=== PATIENT | female | born 1985 | race American Indian/Alaskan Native ===

== ENCOUNTER 2019-03-08 21:19 | Emergency (ER) | payer SELFPAY | END 2019-03-08 21:51 | disposition left against medical advice (07) | LOC: ED 21:19 | DX: R09.81 Nasal congestion (principal); Z53.21 Procedure and treatment not carried out due to patient leaving prior to being seen by health care provider ==

== ENCOUNTER 2020-09-14 06:31 | Emergency (ER) | payer MEDICARE ==
[2020-09-14 07:04] VITALS: BP 153/86
[2020-09-14 08:12] LABS: Basophils % (Auto) 0.3 % (0.0-1.8); Eosinophils # (Auto) 0.1 K/mm3 (0.0-0.4); Eosinophils % (Auto) 0.6 % (0.0-4.3); Hematocrit 36.6 % (30.3-42.9); Hemoglobin 12.2 gm/dl (10.1-14.3); Lymphocytes # (Auto) 1.8 K/mm3 (1.2-5.4); Lymphocytes % (Auto) 19.2 % (13.4-35.0); Mean Corpuscular HGB Conc 33 % (30-34); Mean Corpuscular Volume 95 fl (79-97); Monocytes # (Auto) 0.5 K/mm3 (0.0-0.8); Platelet Count 244 K/mm3 (140-440); Red Blood Count 3.87 M/mm3 (3.65-5.03); Red Cell Distribution Width 14.2 % (13.2-15.2)
[2020-09-14 08:35] LABS: Alanine Aminotransferase 5 units/L (7-56); Albumin 3.7 g/dL (3.9-5); Blood Urea Nitrogen 6 mg/dL (7-17); Calcium 8.9 mg/dL (8.4-10.2)
[2020-09-14] MEDS ORDERED: MORPHINE 4 MG/1 ML INJ IV ONE (09:14)
[2020-09-14] MEDS ORDERED: ONDANSETRON 4 MG/2 ML INJ IV ONE (09:14)
--- NOTE | 2020-09-14 09:19 | Emergency Department Report ---
ED General Adult HPI - General Chief complaint: Abdominal Pain Stated complaint: BACK PAIN/EMESIS Time Seen by Provider: 09/14/20 07:25 Source: patient Mode of arrival: Ambulatory Limitations: No Limitations - History of Present Illness Initial comments: 34-year-old -[place] female patient presents with complaints of sudden onset of left flank pain and nausea starting last night worsening upon waking this morning. She does report a history of kidney stones and states this feels similar. Patient admits to urinary frequency, but denies any hematuria/dysuria, fever/chills/sweats, or stool changes. She reports her last kidney stone did require surgical removal. No other past medical history. She rates her pain as a 10/10 in severity. -: Sudden - Related Data Previous Rx's Medication Instructions Recorded Last Taken Type Acetaminophen/Codeine [Tylenol 1 tab PO Q6H PRN #10 tab 09/14/20 Unknown Rx /Codeine # 3 tab] Ciprofloxacin HCl 500 mg PO BID 3 Days #6 tablet 09/14/20 Unknown Rx Allergies Allergy/AdvReac Type Severity Reaction Status Date / Time No Known Allergies Allergy Unverified 09/14/20 07:03 ED Review of Systems ROS: Stated complaint: BACK PAIN/EMESIS Other details as noted in HPI Constitutional: denies: chills, diaphoresis, fever, malaise, weakness Respiratory: denies: cough, shortness of breath Cardiovascular: denies: chest pain Gastrointestinal: abdominal pain, nausea. denies: diarrhea, constipation, hematemesis Genitourinary: frequency. denies: dysuria, hematuria Skin: denies: change in color Hematological/Lymphatic: denies: swollen glands ED Past Medical Hx - Past Medical History Previous Medical History?: Yes Additional medical history: cystoscopy 2010 - Medications Home Medications: Home Medications Medication Instructions Recorded Confirmed Last Taken Type Acetaminophen/Codeine [Tylenol 1 tab PO Q6H PRN #10 tab 09/14/20 Unknown Rx /Codeine # 3 tab] Ciprofloxacin HCl 500 mg PO BID 3 Days #6 tablet 09/14/20 Unknown Rx ED Physical Exam - General Limitations: No Limitations General appearance: alert, in no apparent distress, obese - Head Head exam: Present: atraumatic, normocephalic - Eye Eye exam: Present: normal appearance - Neck Neck exam: Present: normal inspection - Respiratory Respiratory exam: Present: normal lung sounds bilaterally. Absent: respiratory distress - Cardiovascular Cardiovascular Exam: Present: regular rate, normal rhythm - GI/Abdominal GI/Abdominal exam: Present: soft, tenderness (Left lateral tenderness to palpation). Absent: distended - Extremities Exam Extremities exam: Present: full ROM - Back Exam Back exam: Absent: CVA tenderness (L) - Neurological Exam Neurological exam: Present: alert, oriented X3, normal gait - Psychiatric Psychiatric exam: Present: normal affect, normal mood - Skin Skin exam: Present: warm, dry, intact, normal color. Absent: rash, diaphoretic, ecchymosis ED Course Vital Signs 09/14/20 06:44 Temperature 98.6 F Pulse Rate 63 Respiratory 20 Rate Blood Pressure 153/86 O2 Sat by Pulse 99 Oximetry ED Medical Decision Making - Lab Data Result diagrams: 09/14/20 08:00 09/14/20 08:00 Lab Results 09/14/20 09/14/20 09/14/20 Range/Units 08:00 08:00 08:00 WBC 9.1 (4.5-11.0) K/mm3 RBC 3.87 (3.65-5.03) M/mm3 Hgb 12.2 (10.1-14.3) gm/dl Hct 36.6 (30.3-42.9) % MCV 95 (79-97) fl MCH 32 (28-32) pg MCHC 33 (30-34) % RDW 14.2 (13.2-15.2) % Plt Count 244 (140-440) K/mm3 Lymph % (Auto) 19.2 (13.4-35.0) % Isabella % (Auto) 6.0 (0.0-7.3) % Eos % (Auto) 0.6 (0.0-4.3) % Baso % (Auto) 0.3 (0.0-1.8) % Lymph # (Auto) 1.8 (1.2-5.4) K/mm3 Isabella # (Auto) 0.5 (0.0-0.8) K/mm3 Eos # (Auto) 0.1 (0.0-0.4) K/mm3 Baso # (Auto) 0.0 (0.0-0.1) K/mm3 Seg Neutrophils % 73.9 H (40.0-70.0) % Seg Neutrophils # 6.7 (1.8-7.7) K/mm3 Sodium 140 (137-145) mmol/L Potassium 4.7 (3.6-5.0) mmol/L Chloride 105.6 (98-107) mmol/L Carbon Dioxide 27 (22-30) mmol/L Anion Gap 12 mmol/L BUN 6 L (7-17) mg/dL Creatinine 0.7 (0.6-1.2) mg/dL Estimated GFR > 60 ml/min BUN/Creatinine Ratio 9 % Glucose 122 H (65-100) mg/dL Calcium 8.9 (8.4-10.2) mg/dL Total Bilirubin 0.20 (0.1-1.2) mg/dL AST 14 (5-40) units/L ALT 5 L (7-56) units/L Alkaline Phosphatase 98 (35-129) units/L Total Protein 6.6 (6.3-8.2) g/dL Albumin 3.7 L (3.9-5) g/dL Albumin/Globulin Ratio 1.3 % Lipase 20 (13-60) units/L HCG, Qual Negative (Negative) Urine Color (Yellow) Urine Turbidity (Clear) Urine pH (5.0-7.0) Ur Specific Lutcher (1.003-1.030) Urine Protein (Negative) mg/dL Urine Glucose (UA) (Negative) mg/dL Urine Ketones (Negative) mg/dL Urine Blood (Negative) Urine Nitrite (Negative) Urine Bilirubin (Negative) Urine Urobilinogen (<2.0) mg/dL Ur Leukocyte Esterase (Negative) Urine WBC (Auto) (0.0-6.0) /HPF Urine RBC (Auto) (0.0-6.0) /HPF U Epithel Cells (Auto) (0-13.0) /HPF Urine Bacteria (Auto) (Negative) /HPF Calcium Oxalate Crystal Urine Mucus /HPF 09/14/20 Range/Units Unknown WBC (4.5-11.0) K/mm3 RBC (3.65-5.03) M/mm3 Hgb (10.1-14.3) gm/dl Hct (30.3-42.9) % MCV (79-97) fl MCH (28-32) pg MCHC (30-34) % RDW (13.2-15.2) % Plt Count (140-440) K/mm3 Lymph % (Auto) (13.4-35.0) % Isabella % (Auto) (0.0-7.3) % Eos % (Auto) (0.0-4.3) % Baso % (Auto) (0.0-1.8) % Lymph # (Auto) (1.2-5.4) K/mm3 Isabella # (Auto) (0.0-0.8) K/mm3 Eos # (Auto) (0.0-0.4) K/mm3 Baso # (Auto) (0.0-0.1) K/mm3 Seg Neutrophils % (40.0-70.0) % Seg Neutrophils # (1.8-7.7) K/mm3 Sodium (137-145) mmol/L Potassium (3.6-5.0) mmol/L Chloride (98-107) mmol/L Carbon Dioxide (22-30) mmol/L Anion Gap mmol/L BUN (7-17) mg/dL Creatinine (0.6-1.2) mg/dL Estimated GFR ml/min BUN/Creatinine Ratio % Glucose (65-100) mg/dL Calcium (8.4-10.2) mg/dL Total Bilirubin (0.1-1.2) mg/dL AST (5-40) units/L ALT (7-56) units/L Alkaline Phosphatase (35-129) units/L Total Protein (6.3-8.2) g/dL Albumin (3.9-5) g/dL Albumin/Globulin Ratio % Lipase (13-60) units/L HCG, Qual (Negative) Urine Color Yellow (Yellow) Urine Turbidity Cloudy (Clear) Urine pH 5.0 (5.0-7.0) Ur Specific [place]cher 1.029 (1.003-1.030) Urine Protein 100 mg/dl (Negative) mg/dL Urine Glucose (UA) Neg (Negative) mg/dL Urine Ketones Neg (Negative) mg/dL Urine Blood Lg (Negative) Urine Nitrite Neg (Negative) Urine Bilirubin Neg (Negative) Urine Urobilinogen 4.0 (<2.0) mg/dL Ur Leukocyte Esterase Neg (Negative) Urine WBC (Auto) 14.0 H (0.0-6.0) /HPF Urine RBC (Auto) > 182.0 (0.0-6.0) /HPF U Epithel Cells (Auto) 77.0 H (0-13.0) /HPF Urine Bacteria (Auto) 1+ (Negative) /HPF Calcium Oxalate Crystal 2+ Urine Mucus 2+ /HPF - Radiology Data Radiology results: report reviewed CT ABDOMEN AND PELVIS WITHOUT CONTRAST HISTORY: left flank pain, hx of kidney stones. COMPARISON: None. TECHNIQUE: CT images of the abdomen and pelvis were obtained without administration of intravenous contrast. All CT scans at this location are performed using CT dose reduction for ALARA by means of automated exposure control. FINDINGS: Lungs/bones: Lung bases are clear Abdomen/pelvis: Within limits of a noncontrast examination the liver, spleen, adrenal glands, pancreas and upper GI tract appear normal. There is a tiny 1-which is nonob structing within left kidney. There is left hydronephrosis with inflammatory stranding surrounding the left ureter. The distal left 2 mm nonobstructing calcification within the midpole of the right kidney. Additional 1 mm calcification which is nonobstructing within the left kidney. There is infl ammatory change with hydronephrosis in the left renal pelvis and proximal ureter. No definite urete ral stone is definitely seen. Bowel loops appear normal. No evidence for hydronephrosis. No acute bone findings are seen. IMPRESSION: 1. Inflammatory change with mild left hydroureteronephrosis. No obstructing stone is definitely seen. Fines could represent recently passed ureteral stone. 2. Nonobstructing bilateral renal stones measuring 1 to 2 mm. - Medical Decision Making 34-year-old -[place] female patient presents with complaints of sudden onset of left flank pain and nausea starting last night worsening upon waking this morning. She does report a history of kidney stones and states this feels similar. Patient admits to urinary frequency, but denies any hematuria/dysuria, fever/chills/sweats, or stool changes. She reports her last kidney stone did require surgical removal. No other past medical history. She rates her pain as a 10/[address] shows the following. 1. Inflammatory change with mild left hydroureteronephrosis. No obstructing stone is definitely seen. Fines could represent recently passed ureteral stone. 2. Nonobstructing bilateral renal stones measuring 1 to 2 mm. No white count noted on CBC. Kidney function is normal CMP. Patient is afebrile and nontachycardic. UA shows 14 WBCs, however there are 77 epithelial cells noted. 1+ bacteria noted on UA as well. No left CVA tenderness noted on exam. Will cover for possible small UTI with a few days of Cipro. Patient's pain is controlled, she is well-appearing, she is stable for discharge home. Patient to follow-up with urology for kidney stone. Strict return precautions were discussed in detail patient verbalized understanding Critical care attestation.: If time is entered above; I have spent that time in minutes in the direct care of this critically ill patient, excluding procedure time. ED Disposition Clinical Impression: Left renal stone, Pyuria Disposition: TO HOME OR SELFCARE Is pt being admited?: No Condition: Stable Instructions: Abdominal Pain (ED), Kidney Stones, Urinary Tract Infection, Adult Prescriptions: Ciprofloxacin HCl 500 mg PO BID 3 Days #6 tablet Acetaminophen/Codeine [Tylenol /Codeine # 3 tab] 1 tab PO Q6H PRN #10 tab PRN Reason: Pain , Severe (7-10) Referrals: AISHWARYA CREWS MD [Staff Physician] - 3-5 Days
[2020-09-14 09:25] LABS: BUN/Creatinine Ratio 9
[2020-09-14 09:25] LABS: Bacteria,Urine 1+ /HPF (Negative); Bilirubin,Urine NEG (Negative); Blood,Urine LG (Negative); Calcium Oxalate Crystals,Urine 2+; Color,Urine Yellow (Yellow); Mucus,Urine 2+ /HPF
[2020-09-14 09:52] LABS: RBC,Urine > 182.0 /HPF (0.0-6.0)
--- NOTE | 2020-09-14 10:23 | Cat Scan Report ---
CT ABDOMEN AND PELVIS WITHOUT CONTRAST HISTORY: left flank pain, hx of kidney stones. COMPARISON: None. TECHNIQUE: CT images of the abdomen and pelvis were obtained without administration of intravenous co ntrast. All CT scans at this location are performed using CT dose reduction for ALARA by means of au tomated exposure control. FINDINGS: Lungs/bones: Lung bases are clear Abdomen/pelvis: Within limits of a noncontrast examination the liver, spleen, adrenal glands, pancre as and upper GI tract appear normal. There is a tiny 1-which is nonobstructing within left kidney. Th ere is left hydronephrosis with inflammatory stranding surrounding the left ureter. The distal left 2 mm nonobstructing calcification within the midpole of the right kidney. Additional 1 mm calcificatio n which is nonobstructing within the left kidney. There is inflammatory change with hydronephrosis in the left renal pelvis and proximal ureter. No definite ureteral stone is definitely seen. Bowel loops appear normal. No evidence for hydronephrosis. No acute bone findings are seen. IMPRESSION: 1. Inflammatory change with mild left hydroureteronephrosis. No obstructing stone is definitely seen. Fines could represent recently passed ureteral stone. 2. Nonobstructing bilateral renal stones measuring 1 to 2 mm. Signer Name: Mitch Carmen MD Signed: 09/14/2020 10:19 AM Workstation Name: [email or web address]
[2020-09-14] MEDS ORDERED: KETOROLAC 30 MG/1 ML INJ IV ONE (10:59)
[2020-09-14] MEDS ORDERED: cefTRIAXone/NS 1 GM/50 ML 1 GM/50 ML BAG IV ONE (10:59)
== END 2020-09-14 11:49 | disposition home or self-care (01) ==
LOC: ED 06:31
DX: N20.0 Calculus of kidney (principal); R82.81 Pyuria; Z98.890 Other specified postprocedural states; Z79.2 Long term (current) use of antibiotics; Z79.899 Other long term (current) drug therapy
CPT/HCPCS: 36415; 74176; 80053; 81001; 83690; 84703; 85025; 87086; 96374; 96375; 99284; J0696; J1885; J2270; J2405